=== PATIENT | female | born 1965 | race Caucasian/White ===

== ENCOUNTER 2020-11-15 18:13 | Emergency (ER) | payer SELFPAY ==
[~2020-11-15] VITALS: Ht 162.6 cm; Wt 68.0 kg
[~2020-11-15 18:13] MED LIST: ABILIFY5 MG PO; CHLORDIAZEPOXID25 MG PO; LEVOTHYROXINE112 MC1 PO; LEXAPRO5 MG PO; ZOFRAN4 MG PO
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
[2020-11-16] MEDS ORDERED: CHLORDIAZEPOXID25 MG PO (23:15)
[2020-11-16] MEDS ORDERED: ONDANSETRON ODT8 MG PO (23:15)
== END 2020-11-15 21:20 | disposition home or self-care (01) ==
LOC: ED 18:13
DX: F10.10 Alcohol abuse, uncomplicated (principal); Z88.2 Allergy status to sulfonamides; Z79.899 Other long term (current) drug therapy
CPT/HCPCS: 99284

== ENCOUNTER 2020-11-16 22:26 | Emergency (ER) | payer MEDICAID ==
[~2020-11-16] VITALS: Ht 162.6 cm; Wt 68.0 kg
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
[2020-11-16] MEDS ORDERED: CHLORDIAZEPOXID25 MG PO (23:15)
[2020-11-16] MEDS ORDERED: ONDANSETRON ODT8 MG PO (23:15)
--- NOTE | 2020-11-17 21:14 | EKG ---
[facility] [address] [facility] [place], [place] [address] Signed Normal sinus rhythm Rightward axis Low voltage QRS Nonspecific ST abnormality Abnormal ECG No previous ECGs available Confirmed by LATOYA SUNSHINE DO ([id number]) on 11/17/2020 9:13:47 PM Electronically Signed By: LATOYA SUNSHINE DO 11/17/20 2114 PATIENT NAME: FRANKLIN BROWN Electrocardiogram DATE OF : 69 PHYSICIAN: LATOYA SUNSHINE DO REPORT #: [id number] REPORT IS CONFIDENTIAL AND NOT TO BE RELEASED WITHOUT AUTHORIZATION
== END 2020-11-17 10:32 | disposition home or self-care (01) ==
LOC: ED 22:26
DX: T42.4X2A Poisoning by benzodiazepines, intentional self-harm, initial encounter (principal); F10.129 Alcohol abuse with intoxication, unspecified; Y90.8 Blood alcohol level of 240 mg/100 ml or more; Z88.2 Allergy status to sulfonamides; Z79.899 Other long term (current) drug therapy
CPT/HCPCS: 80053; 80176; 81001; 84443; 85025; 93005; 93010; 99285-25; G0480; J7030

== ENCOUNTER 2020-11-18 18:15 | Emergency (ER) | payer MEDICAID ==
[~2020-11-18] VITALS: Ht 162.6 cm; Wt 68.0 kg
[~2020-11-18 18:15] MED LIST changes: +ONDANSETRON ODT8 MG PO
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
--- NOTE | 2020-11-18 19:30 | EKG ---
[facility] [address] [facility] [place] [address] Signed Normal sinus rhythm Nonspecific T wave abnormality Prolonged QT Abnormal ECG When compared with ECG of 16-NOV-2020 23:25, No significant change was found Confirmed by LATOYA SUNSHINE DO ([id number]) on 11/18/2020 7:30:07 PM Electronically Signed By: LATOYA SUNSHINE DO 11/18/201929 PATIENT NAME: FRANKLIN BROWN JUANY Electrocardiogram DATE OF : 69 PHYSICIAN: LATOYA SUNSHINE DO REPORT #: [id number] REPORT IS CONFIDENTIAL AND NOT TO BE RELEASED WITHOUT AUTHORIZATION
== END 2020-11-18 22:30 | disposition home or self-care (01) ==
LOC: ED 18:15
DX: T42.4X2A Poisoning by benzodiazepines, intentional self-harm, initial encounter (principal); F10.129 Alcohol abuse with intoxication, unspecified; Y90.8 Blood alcohol level of 240 mg/100 ml or more; Z88.2 Allergy status to sulfonamides; Z79.899 Other long term (current) drug therapy
CPT/HCPCS: 80053; 80176; 81001; 84443; 84703; 85025; 93005; 93010; 96374; 99285-25; G0480; J2405

== ENCOUNTER 2020-11-19 15:41 | Emergency (ER) | payer MEDICAID ==
[~2020-11-19] VITALS: Ht 162.6 cm; Wt 68.0 kg
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
--- NOTE | 2020-11-20 20:45 | EKG ---
[facility] [address] [facility] [place], [place] [address] Signed Normal sinus rhythm Cannot rule out Anterior infarct , age undetermined Abnormal ECG When compared with ECG of 18-NOV-2020 18:31, No significant change was found Confirmed by DEVI ALEX MD ([id number]) on 11/20/2020 8:45:06 PM Electronically Signed By: DEVI ALEX MD 11/20/202044 PATIENT NAME: FRANKLIN BROWN JUANY Electrocardiogram DATE OF : 69 PHYSICIAN: DEVI ALEX MD REPORT #: [id number] REPORT IS CONFIDENTIAL AND NOT TO BE RELEASED WITHOUT AUTHORIZATION
== END 2020-11-19 21:29 | disposition home or self-care (01) ==
LOC: ED 15:41
DX: R19.7 Diarrhea, unspecified (principal); R11.10 Vomiting, unspecified; Z88.2 Allergy status to sulfonamides; Z79.899 Other long term (current) drug therapy
CPT/HCPCS: 71045; 80053; 83690; 83735; 84484; 84703; 85025; 93005; 93010; 96365; 99284-25; J3411; J7030